=== PATIENT | male | born 1965 | race Caucasian/White ===

== ENCOUNTER 2018-02-07 17:28 | Emergency (ER) | payer BC ==
[2018-02-07 17:32] VITALS: BP 130/92; PULSE 61; TEMP 98; BMI 25.8
--- NOTE | 2018-02-07 18:12 | PDOC ---
History of Present Illness - General Chief Complaint: Laceration Stated Complaint: RT 2ND FINGER LACERATION Time Seen by Provider: 02/07/18 17:33 - History of Present Illness Initial Comments: 02/07/18 18:04 52 year old presents after cutting his R index finger while using a carpentry knife approx 1 hour ago. The patient started noticing some numbness in the finger tip. The patient has no other complaints at bedside and denies any other injuries to the extremities. Past History - Past Medical History Allergies/Adverse Reactions: Allergies Allergy/AdvReac Type Severity Reaction Status Date / Time amoxicillin Allergy Verified 02/07/18 17:29 Home Medications: Ambulatory Orders Ibuprofen [Motrin -] 400 mg PO TID PRN #10 tablet 02/07/18 COPD: No Other medical history: PT DENIES - Suicide/Smoking/Psychosocial Hx Smoking Status: No Smoking History: Never smoked Have you smoked in the past 12 months: No Number of Cigarettes Smoked Daily: 0 Information on smoking cessation initiated: No Hx Alcohol Use: No Drug/Substance Use Hx: No Substance Use Type: None *Physical Exam - Vital Signs Last Vital Signs Temp Pulse Resp BP Pulse Ox 98 F 61 18 130/92 100 02/07/18 17:28 02/07/18 17:28 02/07/18 17:28 02/07/18 17:28 02/07/18 17:28 - Physical Exam Comments: 02/07/18 18:49 3.5cm laceration crossing the DIP. Procedures - Laceration/Wound Repair Right Finger 2nd digit Wound Length: to 2.5 cm Wound Explored: clean, no foreign body present Wound's Depth, Shape: superficial, flap Irrigated w/ Saline: Yes Anesthesia: 1% Lidocaine Amount of Anesthetic (ccs): 5 (digital block) Wound Repaired With: Sutures Suture Size/Type: 5:0, nylon Number of Sutures: 5 Layer Closure: No Sterile Dressing Applied: Yes Splint Applied: Yes Progress: 02/07/18 19:08 minimal blood loss, pt tolerated well Medical Decision Making - Medical Decision Making 02/07/18 18:43 5-0 suture. 5 stitches *DC/Admit/Observation/Transfer Diagnosis at time of Disposition: Laceration - Discharge Dispostion Disposition: HOME Condition at time of disposition: Stable - Prescriptions Prescriptions: Ibuprofen [Motrin -] 400 mg PO TID PRN #10 tablet PRN Reason: Pain - Referrals Referrals: Carlyle Flannery [Primary Care Provider] - - Patient Instructions Printed Discharge Instructions: DI for Laceration Repair Additional Instructions: You were seen in the ED for R index laceration. You were treated with suture laceration repair. You are advised to return to the ED on 02/16/18 - 02/18/18 for suture removal. Keep the wound dry for 24 hours and avoid lotions and soaps. Please follow up with your primary care physician in 1-2 weeks. Return to the ED immediately. if you have redness around the wound, drainage of pus, opening of the wound site, fever, or nausea. - Post Discharge Activity
[2018-02-07] MEDS ORDERED: IBUPROFEN 400 MG TABLET (FP) PO ONE ×2 (18:54→18:55)
--- NOTE | 2018-02-07 18:54 | PDOC ---
Attending Attestation - Resident Resident Name: Tamika Lowe - ED Attending Attestation I have performed the following: I have examined & evaluated the patient, The case was reviewed & discussed with the resident, I agree w/resident's findings & plan, Exceptions are as noted - HPI HPI: 52 yo M presents with R index finger laceration after cutting it with a kraus's knife. He states that he was working on a project at home when he switched hands with the knife and accidentally cut the finger. He states it was bleeding at home, eventually improved with direct pressure. However, when he saw the wound, he was concerned that it was too deep to heal on it's own. No bleeding at present. No other injuries. Last tetanus booster 3 years ago. - Physicial Exam PE: GENERAL: Awake, alert, and fully oriented, in no acute distress HEAD: No signs of trauma EYES: PERRLA, EOMI, sclera anicteric, conjunctiva clear EXTREMITIES: R index finger with 2 cm laceration, C-shaped, into subcutaneous fat. No active bleeding. Tendon function intact. Distal N/V intact. Remainder of extremities with normal range of motion, no edema. No clubbing or cyanosis. No cords, erythema, or tenderness NEUROLOGICAL: Cranial nerves II through XII grossly intact. Normal speech, normal gait SKIN: Warm, Dry, normal turgor, no rashes or lesions noted. - Medical Decision Making Laceration was anesthetized, then irrigated with copious water. No FB suspected , none visualized. Laceration was repaired with 5 sutures. +Hemostasis. Bacitracin applied, followed by tubular gauze dressing. Patient was fitted with a splint and instructed how to apply it tomorrow after removing the gauze. Stable for DC home.
== END 2018-02-07 19:02 | disposition home or self-care (01) ==
LOC: FER 17:28
PROC: 0HQFXZZ Repair Right Hand Skin, External Approach (ICD-10-PCS; principal; 2018-02-07)
DX: S61.210A Laceration without foreign body of right index finger without damage to nail, initial encounter (principal); W26.0XXA Contact with knife, initial encounter; Y93.89 Activity, other specified; Y92.9 Unspecified place or not applicable
CPT/HCPCS: 99284-25

== ENCOUNTER 2018-03-11 18:30 | Emergency (ER) | payer BC ==
[2018-03-11 18:48] VITALS: BP 125/91; PULSE 67; TEMP 98.1; BMI 25.8
--- NOTE | 2018-03-11 19:30 | PDOC ---
Suture Removal/Wound Check HPI - History of Present Illness History Source: Yes: Patient Exam Limitations: Yes: No Limitations - Onset of Previous Treatment Comment:: 03/11/18 19:45 The patient is a 53-year-old male, with no past medical history, who presents to the ED for suture removal. The patient was last seen in the ED on 02/07 for with a right index finger laceration sustained after using a kraus's knife. The patient received 5 sutures and was advised to return to the ED between 02/17- 02/18 for suture removal. Patient was unable to return to the ED until tonight. On exam, the patient reports feeling a numb sensation in his finger. The patient denies having any other injuries or symptoms. PAST MEDICAL HISTORY: no significant history PAST SURGICAL HISTORY: no significant history FAMILY HISTORY: no pertinent history HISTORY: Pt lives with family and is employed. MEDICATIONS: reviewed ALLERGIES: As per nursing notes Adult ROS General: No fevers or chills, no weakness, no weight loss HEENT: No change in vision. No sore throat,. No ear pain CardioVascular: No chest pain or shortness of breath Respiratory:No cough, or wheezing. Gastrointestinal: no nausea, vomiting, diarrhea or constipation, No rectal bleeding Genitourinary: No dysuria, hematuria, or frequency Musculoskeletal: No joint or muscle pain or swelling Neurologic: (+)Numbness right index finger. No headache, vertigo, dizziness or loss of consciousness Psychiatric: nor depression Skin: No rashes or easy bruising Endocrine: no increased thirst or abnormal weight change Allergic: no skin or latex allergy All other systems reviewed and normal Basic PE GENERAL: The patient is awake, alert, and fully oriented, in no acute distress. HEAD: Normal with no signs of trauma. EYES: Pupils equal, round and reactive to light, extraocular movements intact, sclera anicteric, conjunctiva clear. EXTREMITIES: Normal range of motion, no edema. NEUROLOGICAL: Normal speech, normal gait. PSYCH: Normal mood, normal affect. SKIN: (+)Right index finger with a well healing laceration. No erythema, tenderness, or increase in warmth. Warm, Dry, normal turgor. <Milvia Cage - Last Filed: 03/11/18 19:49> - History of Present Illness History Source: Yes: Patient Exam Limitations: Yes: No Limitations - Onset of Previous Treatment Comment:: A portion of this note was documented by scribe services under my direction. I have reviewed the details of the note, within reason, and agree with the documentation. The case summary and management plan written by me. Procedure note removal of sutures: Sutures removed without difficulty using a # 11 blade to cut them and then pulled them out with a tweezers. Patient tolerated well. <Ella Morgan I - Last Filed: 03/11/18 21:41> - History of Present Illness Chief Complaint: Suture/Staple Removal(Here) Stated Complaint: SUTURE REMOVAL Time Seen by Provider: 03/11/18 19:05 Past History <Milvia Cage - Last Filed: 03/11/18 19:49> - Past Medical History COPD: No - Suicide/Smoking/Psychosocial Hx Smoking Status: No Smoking History: Never smoked Have you smoked in the past 12 months: No Number of Cigarettes Smoked Daily: 0 Hx Alcohol Use: Yes (occasional wine) Drug/Substance Use Hx: No Substance Use Type: None <Ella Morgan I - Last Filed: 03/11/18 21:41> - Past Medical History Allergies/Adverse Reactions: Allergies Allergy/AdvReac Type Severity Reaction Status Date / Time amoxicillin Allergy Verified 03/11/18 18:31 Home Medications: Ambulatory Orders NK [No Known Home Medication] 03/11/18 *Review of Systems - Review of Systems Able to Perform ROS?: Yes <Milvia Cage - Last Filed: 03/11/18 19:49> *Physical Exam - Vital Signs Last Vital Signs Temp Pulse Resp BP Pulse Ox 98.1 F 67 18 125/91 99 03/11/18 18:33 03/11/18 18:33 03/11/18 18:33 03/11/18 18:33 03/11/18 18:33 <Milvia Cage - Last Filed: 03/11/18 19:49> - Vital Signs Last Vital Signs Temp Pulse Resp BP Pulse Ox 98.1 F 67 18 125/91 99 03/11/18 18:33 03/11/18 18:33 03/11/18 18:33 03/11/18 18:33 03/11/18 18:33 <Ella Morgan I - Last Filed: 03/11/18 21:41> *DC/Admit/Observation/Transfer - Attestations Scribe Attestion: 03/11/18 20:04 Documentation prepared by Milvia Cage, acting as family practice medical doctor for Ella Morgan MD. <Milvia Cage - Last Filed: 03/11/18 19:49> - Discharge Dispostion Decision to Admit order: No <Ella Morgan I - Last Filed: 03/11/18 21:41> Diagnosis at time of Disposition: Visit for suture removal - Discharge Dispostion Disposition: HOME Condition at time of disposition: Stable - Patient Instructions Printed Discharge Instructions: DI for Suture Removal Additional Instructions: Use a bandage protect this laceration for the next week when you're doing activities that may cause stress or friction to the laceration. Otherwise you can leave it open. The numbness and hyperesthesia should resolve over the course of the next few weeks. If you saw her having symptoms in a month follow-up with an orthopedist. Return to the emergency department immediately with ANY new, persistent or worsening symptoms. Continue any medications as previously prescribed by your physician. You should follow up with your primary doctor as soon as possible regarding today's emergency department visit. . Please make sure your doctor reviews the results of your emergency evaluation. Thank you for coming to the Emergency Department today for your care. It was a pleasure to see you today. Please note that your evaluation is INCOMPLETE until you follow-up with your doctor.
== END 2018-03-11 19:33 | disposition home or self-care (01) ==
LOC: FER 18:30
DX: Z48.02 Encounter for removal of sutures (principal)
CPT/HCPCS: 99282-25